=== PATIENT | female | born 1985 | race Two or more races ===

== ENCOUNTER 2024-04-19 11:49 | Emergency (ER) | payer OTHER ==
[~2024-04-19] VITALS: Ht 172.7 cm; Wt 80.0 kg
[2024-04-19] MEDS: DONNATAL 5ml ORAL Elix (BELLADONNA ALK-PHENOBARB) PO ONE (12:57)
[2024-04-19] MEDS: LIDOCAINE VISCOUS 2% 15ML UD PO ONE (12:57)
[2024-04-19] MEDS: MAALOX PLUS or MAALOX 30 ML PO ONE (12:57)
[2024-04-19 12:58] VITALS: PULSE 75; RESP 20; O2SAT 96
[2024-04-19 13:00] LABS: Urine Bacteria None Seen /hpf (None Seen)
[2024-04-19 13:16] LABS: Basophils # (auto) 0.1 10 ^3/uL (0-0.2); Basophils % (auto) 0.5 % (0.0-2.0); Eosinophils # (auto) 0 10 ^3/uL (0-0.8); Eosinophils % (auto) 0.2 % (0.0-7.0); Hematocrit 43.9 % (36.0-46.0); Hemoglobin 15.3 g/dL (12.2-16.2); Lymphocytes # (auto) 2.2 10 ^3/uL (0.4-5.4); Lymphocytes % (auto) 18.6 % (10.0-50.0); Mean Corpuscular Hemoglobin 32.5 pg (28.0-32.0); Mean Corpuscular Hgb Conc. 34.9 g/dL (32.0-36.0); Mean Corpuscular Volume 93.3 fL (80.0-100.0); Monocytes # (auto) 0.7 10 ^3/uL (0-1.3); Monocytes % (auto) 6.1 % (0.0-12.0); Neutrophils # (auto) 8.6 10 ^3/uL (1.6-8.6); Neutrophils % (auto) 74.6 % (37.0-80.0); Nucleated Red Blood Cells % 0.1 %; Platelet Count (auto) 288 10^3/uL (140-450); Red Blood Cells 4.71 10^6/uL (4.0-5.20); Red Cell Distribution Width 13.7 % (11.8-14.3); White Blood Cell 11.6 10^3/uL (4.4-10.8)
[2024-04-19 13:20] LABS: Chloride 106 mmol/L (98-107); Potassium 3.7 mmol/L (3.5-5.1); Sodium 137 mmol/L (136-145)
[2024-04-19 13:21] LABS: Anion Gap 7 (5-15); Calcium 9.6 mg/dL (8.7-10.4); Carbon Dioxide 24 mmol/L (20-30)
[2024-04-19 13:26] LABS: BUN/Creatinine Ratio 13.8 (10.0-20.0); Blood Urea Nitrogen 8 mg/dL (9-23); Glucose 88 mg/dL (74-106)
[2024-04-19 13:30] LABS: Urine Blood 1+ /uL (Negative); Urine Clarity Clear (Clear); Urine Color Light-Yellow (Yellow); Urine Protein, UAD Negative (Negative); Urine Specific Gravity 1.012 (1.001-1.035); Urine Urobilinogen Normal (Negative); Urine WBC 1 /hpf (0 - 5)
[2024-04-19 15:22] VITALS: BP 122/71; PULSE 54; RESP 16; TEMP 98.8; O2SAT 99
[2024-04-19] MEDS: SODIUM CHLORIDE 0.9% 1,000 ML IV ONE (15:23)
[2024-04-19] MEDS ORDERED: PANT40TA2 PO (16:16)
== END 2024-04-19 17:22 | disposition home or self-care (01) ==
LOC: ER 11:49
DX: K29.70 Gastritis, unspecified, without bleeding (principal)
CPT/HCPCS: 36415; 80048; 81001; 85025; 96360; 99284; J7030